=== PATIENT | male | born 1980 | race Caucasian/White ===

== ENCOUNTER 2018-02-17 20:41 | Emergency (ER) | payer OTHER ==
[2018-02-17] MEDS ORDERED: LORazepam 0.5 MG TABLET PO STA (21:08)
[2018-02-17 21:15] LABS: MUDS CUTOFF CONCENTRATIONS CUTOFF CONC BELOW:
[2018-02-17 21:17] LABS: BILIRUBIN,URINE NEGATIVE (NEGATIVE); GLUCOSE, URINE (UA) NEGATIVE (NEGATIVE); KETONES,URINE (UA) NEGATIVE (NEGATIVE); LEUKOCYTE ESTERASE, URINE NEGATIVE (NEGATIVE); NITRITE,URINE NEGATIVE (NEGATIVE); OCCULT BLOOD,URINE NEGATIVE (NEGATIVE); PH,URINE 7.5 PH (5.0-7.5); PROTEIN,URINE NEGATIVE (NEGATIVE); UROBILINOGEN,URINE 0.2 (NORMAL) E.U./dL (NORMAL)
[2018-02-17 21:18] LABS: CLARITY,URINE CLEAR (CLEAR)
[2018-02-17 21:25] LABS: BASOPHILS % (AUTO) 0.4 %; EOSINOPHILS % (AUTO) 0.2 %; HGB - HEMOGLOBIN 14.2 g/dL (14.0-18.0); LYMPHOCYTES # (AUTO) 2.7 10^3/uL (1.5-3.5); LYMPHOCYTES % (AUTO) 28.4 %; MEAN CORPUSCULAR HEMOGLOBIN 28.5 pg (27.0-31.0); MEAN CORPUSCULAR HGB CONC 34.1 g/dL (32.0-36.0); MEAN CORPUSCULAR VOLUME 83.7 fL (80.0-94.0); MEAN PLATELET VOLUME 7.8 fL (7.4-11.4); MONOCYTES # (AUTO) 0.6 10^3/uL (0.0-1.0); MONOCYTES % (AUTO) 6.2 %; NEUTROPHILS # (AUTO) 6.2 10^3/uL (1.5-6.6); NEUTROPHILS % (AUTO) 64.8 %; PLT - PLATELET COUNT 276 10^3/uL (130-450); RED BLOOD COUNT 4.98 10^6/uL (4.70-6.10); WHITE BLOOD COUNT 9.6 x10^3/uL (4.8-10.8)
[2018-02-17 21:28] LABS: AMPHETAMINE SCREEN,URINE NEGATIVE (NEGATIVE); BENZODIAZEPINES SCREEN, URINE NEGATIVE (NEGATIVE); COCAINE SCREEN URINE NEGATIVE (NEGATIVE); METHADONE SCREEN, URINE NEGATIVE (NEGATIVE); METHAMPHETAMINES SCREEN, URINE NEGATIVE (NEGATIVE); OPIATE SCREEN, URINE NEGATIVE (NEGATIVE); OXYCODONE SCREEN, URINE NEGATIVE (NEGATIVE); PROPOXYPHENE SCREEN, URINE NEGATIVE (NEGATIVE); TRICYCLIC ANTIDEPRESSANT,URINE NEGATIVE (NEGATIVE)
[2018-02-17 21:38] LABS: ALBUMIN 4.9 g/dL (3.2-5.5); ALBUMIN/GLOBULIN RATIO 1.7 (1.0-2.2); ALKALINE PHOSPHATASE 46 IU/L (42-121); ALT ALANINE AMINOTRANSFERASE 30 IU/L (10-60); AST ASPARTATE AMINOTRANSFERASE 27 IU/L (10-42); BILIRUBIN,TOTAL 0.7 mg/dL (0.2-1.0); BUN - BLOOD UREA NITROGEN 9 mg/dL (6-20); CALCIUM 9.3 mg/dL (8.5-10.3); CARBON DIOXIDE - CO2 25 mmol/L (21-32); CHLORIDE 98 mmol/L (101-111); CREATININE 0.9 mg/dL (0.6-1.2); GFR - MDRD 95 (>89); GLUCOSE 104 mg/dL (70-100); LIPASE 22 U/L (22-51); SODIUM 132 mmol/L (135-145); TOTAL PROTEIN 7.8 g/dL (6.7-8.2)
--- NOTE | 2018-02-17 23:02 | ED Physician Documentation ---
PD HPI MHE - Stated complaint Stated Complaint: SI - Chief complaint Chief Complaint: MHE - History obtained from History obtained from: Patient - History of Present Illness Primary symptom: Suicidal ideation, Depression Timing - onset: Today Contributing factors: Work Similar symptoms before: No diagnosis Recently seen: Not recently seen - Additional information Additional information: patient is a 37 year old male with a history of depression who is presenting to the emergency department for suicidal ideation. 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 While he was there he had thought of killing himself so he called police. Patient has been in counseling for substance abuse and for depression in the past. patient did not have a specific plan but he was tearful on initial evaluation. Review of Systems Ten Systems: 10 systems reviewed and negative Psychiatric: reports: Depressed, Suicidal PD PAST MEDICAL HISTORY - Past Medical History Past Medical History: Yes GI: GERD Psych: Depression, Anxiety - Past Surgical History Ortho: Other - Present Medications Home Medications: Ambulatory Orders Medication Instructions Recorded Confirmed Duloxetine HCl [Cymbalta] 60 mg PO BID 02/17/18 02/17/18 Pantoprazole [Protonix] 40 mg PO 02/17/18 busPIRone [Buspar] 30 mg PO BID 02/17/18 - Allergies Allergies/Adverse Reactions: Allergies Allergy/AdvReac Type Severity Reaction Status Date / Time No Known Drug Allergies Allergy Verified 02/17/18 20:45 - Social History Does the pt smoke?: No Smoking Status: Never smoker Does the pt have substance abuse?: No - Immunizations Immunizations are current?: Yes PD ED PE NORMAL - Vitals Vital signs reviewed: Yes - General General: Alert and oriented X 3 - HEENT HEENT: Atraumatic, PERRL - Neck Neck: Supple, no meningeal sign - Cardiac Cardiac: RRR - Respiratory Respiratory: No respiratory distress - Abdomen Abdomen: Non distended - Derm Derm: Normal color, No rash - Extremities Extremities: No deformity - Neuro Neuro: Alert and oriented X 3, No motor deficit Eye Opening: Spontaneous PD ED PE EXPANDED - Psych Psych: Depressed, Suicidal, Tearful, Poor eye contact Results - Vitals Vitals: Vital Signs - 24 hr 02/17/18 20:43 Temperature 36.9 C Heart Rate 94 Respiratory 18 Rate Blood Pressure 154/87 H O2 Saturation 100 Oxygen O2 Source Room air - Labs Labs: Laboratory Tests 02/17/18 02/17/18 02/17/18 21:00 21:17 21:17 WBC 9.6 RBC 4.98 Hgb 14.2 Hct 41.7 L MCV 83.7 MCH 28.5 MCHC 34.1 RDW 13.0 Plt Count 276 MPV 7.8 Neut # 6.2 Lymph # 2.7 [place] # 0.6 Eos # 0.0 Baso # 0.0 Absolute Nucleated RBC 0.00 Nucleated RBC % 0.0 Sodium 132 L Potassium 3.0 L Chloride 98 L Carbon Dioxide 25 Anion Gap 9.0 BUN 9 Creatinine 0.9 Estimated GFR (MDRD) 95 Glucose 104 H Calcium 9.3 Total Bilirubin 0.7 AST 27 ALT 30 Alkaline Phosphatase 46 Total Protein 7.8 Albumin 4.9 Globulin 2.9 Albumin/Globulin Ratio 1.7 Lipase 22 Urine Color YELLOW Urine Clarity CLEAR Urine pH 7.5 Ur Specific [place] 1.010 Urine Protein NEGATIVE Urine Glucose (UA) NEGATIVE Urine Ketones NEGATIVE Urine Occult Blood NEGATIVE Urine Nitrite NEGATIVE Urine Bilirubin NEGATIVE Urine Urobilinogen 0.2 (NORMAL) Ur Leukocyte Esterase NEGATIVE Ur Microscopic Review NOT INDICATED Urine Culture Comments NOT INDICATED Urine Opiates Screen NEGATIVE Ur Oxycodone Screen NEGATIVE Urine Methadone Screen NEGATIVE Ur Propoxyphene Screen NEGATIVE Ur Barbiturates Screen NEGATIVE Ur Tricyclics Screen NEGATIVE Ur Phencyclidine Scrn NEGATIVE Ur Amphetamine Screen NEGATIVE U Methamphetamines Scrn NEGATIVE U Benzodiazepines Scrn NEGATIVE Urine Cocaine Screen NEGATIVE U Cannabinoids Screen NEGATIVE Ethyl Alcohol < 5.0 PD MEDICAL DECISION MAKING - ED course Complexity details: reviewed old records, reviewed results, re-evaluated patient , considered differential, d/w patient, d/w family ED course: Patient was seen and examined at bedside. labs were drawn and urine was collected. patient was upset and tearful but willing to cooperate. patient was treated with ativan 0.5mg. Patient's labs showed mild hypokalemia and patient was treated with 40meq of potassium. patient requested a sleep aid and was treated with ambien. Patient was at a moderately high risk but voluntary. Patient was signed over to Dr. Cotter pending social work evaluation.
[2018-02-18] MEDS ORDERED: ZOLPIDEM 5 MG TABLET PO STA (00:46)
[2018-02-18] MEDS ORDERED: POTASSIUM CHLORIDE 20 MEQ TABLET PO STA (02:23)
--- NOTE | 2018-02-18 08:05 | ED Physician Documentation ---
History of Present Illness - Stated complaint Stated Complaint: SI - Chief complaint Chief Complaint: MHE PD PAST MEDICAL HISTORY - Past Medical History Past Medical History: Yes GI: GERD Psych: Depression, Anxiety - Past Surgical History Ortho: Other - Present Medications Home Medications: Ambulatory Orders Medication Instructions Recorded Confirmed Duloxetine HCl [Cymbalta] 60 mg PO BID 02/17/18 02/17/18 Pantoprazole [Protonix] 40 mg PO 02/17/18 busPIRone [Buspar] 30 mg PO BID 02/17/18 - Allergies Allergies/Adverse Reactions: Allergies Allergy/AdvReac Type Severity Reaction Status Date / Time No Known Drug Allergies Allergy Verified 02/17/18 20:45 - Social History Does the pt smoke?: No Smoking Status: Never smoker Does the pt have substance abuse?: No - Immunizations Immunizations are current?: Yes Results - Vitals Vitals: Vital Signs - 24 hr 02/18/18 02/18/18 06:56 12:36 Temperature 36.9 C Heart Rate 91 74 Respiratory 15 18 Rate Blood Pressure 109/67 117/83 H O2 Saturation 98 98 Oxygen O2 Source Room air - Labs Labs: Laboratory Tests 02/17/18 02/17/18 02/17/18 21:00 21:17 21:17 WBC 9.6 RBC 4.98 Hgb 14.2 Hct 41.7 L MCV 83.7 MCH 28.5 MCHC 34.1 RDW 13.0 Plt Count 276 MPV 7.8 Neut # 6.2 Lymph # 2.7 [place] # 0.6 Eos # 0.0 Baso # 0.0 Absolute Nucleated RBC 0.00 Nucleated RBC % 0.0 Sodium 132 L Potassium 3.0 L Chloride 98 L Carbon Dioxide 25 Anion Gap 9.0 BUN 9 Creatinine 0.9 Estimated GFR (MDRD) 95 Glucose 104 H Calcium 9.3 Total Bilirubin 0.7 AST 27 ALT 30 Alkaline Phosphatase 46 Total Protein 7.8 Albumin 4.9 Globulin 2.9 Albumin/Globulin Ratio 1.7 Lipase 22 Urine Color YELLOW Urine Clarity CLEAR Urine pH 7.5 Ur Specific [place] 1.010 Urine Protein NEGATIVE Urine Glucose (UA) NEGATIVE Urine Ketones NEGATIVE Urine Occult Blood NEGATIVE Urine Nitrite NEGATIVE Urine Bilirubin NEGATIVE Urine Urobilinogen 0.2 (NORMAL) Ur Leukocyte Esterase NEGATIVE Ur Microscopic Review NOT INDICATED Urine Culture Comments NOT INDICATED Urine Opiates Screen NEGATIVE Ur Oxycodone Screen NEGATIVE Urine Methadone Screen NEGATIVE Ur Propoxyphene Screen NEGATIVE Ur Barbiturates Screen NEGATIVE Ur Tricyclics Screen NEGATIVE Ur Phencyclidine Scrn NEGATIVE Ur Amphetamine Screen NEGATIVE U Methamphetamines Scrn NEGATIVE U Benzodiazepines Scrn NEGATIVE Urine Cocaine Screen NEGATIVE U Cannabinoids Screen NEGATIVE Ethyl Alcohol < 5.0 PD MEDICAL DECISION MAKING - ED course ED course: assumed care 705 AM hx from pt and turnover from night EMP Dr Tejada 37 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 went to [facility] last night to watch the sun set and try to calm down could not stop crying and was considering jumping off a vern to kill himself denies homicidal no recent illness - no fever cough NVD VS noted pleasant and cooperative RRR CTAB medically clear awaiting eval and likely placement at [facility] 930 AM SW has seen pt and he is accepted to [facility] completed BLS transport arranged no further issues before departure Departure - Departure Disposition: 65 Psych Hosp/Unit DC/Xfer Clinical Impression: Suicidal ideation Depression Qualifiers: Depression Type: unspecified Qualified Code(s): F32.9 - Major depressive disorder, single episode, unspecified Forms: Activity restrictions Discharge Date/Time: 02/18/18 14:45
[2018-02-18 12:36] VITALS: BP 117/83
== END 2018-02-18 14:45 ==
LOC: EDUNIT# → ED 20:41
DX: F32.9 Major depressive disorder, single episode, unspecified (principal); R45.851 Suicidal ideations; K21.9 Gastro-esophageal reflux disease without esophagitis
CPT/HCPCS: 36415; 80053; 80306; 80320; 81003; 83690; 85025; 99284; 99285; A9270; 81001; 87086; 99283

== ENCOUNTER 2019-01-27 13:14 | Outpatient (CLI) | payer OTHER ==
[2019-01-27] MEDS ORDERED: GADOPENTETATE DIMEGLUMINE 5 ML VIAL IVP ONE ×2 (13:48→15:04)
[2019-01-27] MEDS ORDERED: BUFFERED LIDOCAINE 10 ML SYRINGE ONE ×2 (13:48)
[2019-01-27] MEDS ORDERED: IOTHALAMATE MEGLUMINE 50 ML VIAL ONE (13:49)
[2019-01-27] MEDS ORDERED: BUFFERED LIDOCAINE 10 ML SYRINGE IU ONE (15:04)
[2019-01-27] MEDS: IOTHALAMATE MEGLUMINE 50 ML VIAL IVP ONE (15:09)
--- NOTE | 2019-01-27 15:52 | XRAY Report ---
Reason: PAIN IN UNSPECIFIED SHOULDER Procedure Date: 01/27/2019 Accession Number: [id number] / [id number] Procedure: FL - Arthrogram Shoulder RT CPT Code: FULL RESULT: EXAM: RIGHT SHOULDER ARTHROGRAPHIC INJECTION WITH FLUOROSCOPIC GUIDANCE EXAM DATE: 01/27/2019 02:20 PM. CLINICAL HISTORY: Pain in unspecified shoulder. COMPARISON: None. TECHNIQUE: The risks, benefits, and alternatives of the procedure were discussed with the patient. All questions were answered. Written and verbal consent were obtained. The glenohumeral joint was marked under fluoroscopy and prepped and draped in a sterile manner. Local anesthesia was performed with 1% lidocaine. A 22-gauge needle was then inserted into the glenohumeral joint. 15 mL of a solution containing 25% 1% lidocaine, 25% iodinated contrast, and a 1:200 dilution of gadolinium contrast in sterile saline was then injected. The needle was removed without immediate complication. Other: None. Fluoroscopy Time: 45 seconds. Number of Images: 2. FINDINGS: Bones and joints: No fracture or subluxation. Injection: Fluoroscopic images demonstrate needle placement and contrast in the glenohumeral joint. No contrast extravasation outside of the glenohumeral joint. IMPRESSION: Successful fluoroscopically guided arthrographic injection of the shoulder. [facility]
--- NOTE | 2019-01-29 16:09 | MRI Report ---
Reason: PAIN IN UNSPECIFIED SHOULDER Procedure Date: 01/27/2019 Accession Number: [id number] / [id number] Procedure: MRI - Arthrogram Shoulder RT CPT Code: FULL RESULT: EXAM: RIGHT SHOULDER MRI ARTHROGRAM WITH CONTRAST EXAM DATE: 01/27/2019 02:41 PM. CLINICAL HISTORY: Right shoulder pain. COMPARISON: None. TECHNIQUE: Multiplanar, multisequence T1-weighted and fluid-sensitive sequences of the shoulder after an arthrographic injection of dilute gadolinium, dictated under a separate exam. Other: None. FINDINGS: Acromioclavicular Region: The acromion is type 2 with mild lateral downsloping and small subacromial enthesophyte. Mild degenerative change at the joint. Mildly thickened coracoacromial ligament. Minimal fluid without contrast in the subacromial/subdeltoid bursa. Glenohumeral Region: No subluxation. No loose bodies. Shallow partial-thickness cartilage loss at the central joint. Mildly attenuated and distorted appearance at the anterior inferior and posterior inferior glenohumeral ligaments. Thickened middle glenohumeral ligament. Bone Marrow: No fracture or bone lesion. Subtle reactive cyst at the greater tuberosity. Labrum: Contrast-filled partial-thickness undersurface tear posterior superior aspect extending deep and anterior to the biceps anchor. Tear extends throughout the posterior aspect as well. Possible focal full-thickness component at the posterior inferior aspect where there is a 3 mm paralabral cyst. Fraying and possible partial-thickness tear anterior inferior aspect. Biceps Tendon: Mild thickening of the intra-articular portion. Medial subluxation at the superior aspect of the groove. Musculature/Rotator Cuff: Mild supraspinatus tendinopathy with shallow articular surface fraying anterior fibers. Mild infraspinatus tendinopathy with subtle shallow partial-thickness intrasubstance tear posterior insertion. Teres minor tendon intact. Mild subscapularis tendinopathy with shallow partial-thickness undersurface tear superior insertion. No edema or fatty atrophy. Other: The subcutaneous tissues are unremarkable. IMPRESSION: 1. Mild supraspinatus tendinopathy with shallow articular surface fraying anteriorly. 2. Mild infraspinatus tendinopathy with subtle shallow partial-thickness intrasubstance tear posterior insertion. 3. Mild subscapularis tendinopathy with shallow partial-thickness undersurface tear superior insertion. 4. Mild biceps tendinopathy with medial subluxation from the groove. 5. Superior labral tear extending anterior to posterior (SLAP tear), extending throughout the posterior labrum. Possible focal full-thickness component at the posterior inferior aspect where there is a subtle paralabral cyst. 6. Fraying and possible partial-thickness tear anterior inferior aspect. 6. Mild acromioclavicular degenerative change. 7. Lateral downsloping of the acromion, subacromial enthesophyte, and thickened coracoacromial ligament may contribute to symptoms of impingement. 8. Chronic partial-thickness tears anterior inferior and posterior inferior glenohumeral ligaments. [facility] MUSCULOSKELETAL RADIOLOGY SECTION
== END 2019-01-27 13:15 | disposition home or self-care (01) ==
LOC: DI 13:14
PROVIDERS: ATTEND General Practice
DX: S43.431A Superior glenoid labrum lesion of right shoulder, initial encounter (principal); M75.101 Unspecified rotator cuff tear or rupture of right shoulder, not specified as traumatic; M19.011 Primary osteoarthritis, right shoulder; M67.88 Other specified disorders of synovium and tendon, other site; S43.491A Other sprain of right shoulder joint, initial encounter
CPT/HCPCS: 23350; 73222; 77002; Q9961